=== PATIENT | female | born 1940 | race Caucasian/White ===

== ENCOUNTER → 2016-11-28 | Outpatient (CLI) | payer OTHER, BC ==
--- NOTE | 2016-11-28 15:52 | MR ---
MRI of the Brain (Without Contrast) History: Severe headaches, R 51. Technique: T1-weighted images were acquired axially and sagittally from the foramen magnum to the ve rtex. Axial fast inversion recovery, fast T2-weighted, GRE and diffusion-weighted axial images were obtained without contrast. Findings: There are several bilateral scattered isovolumic T2-weighted foci of hyperintensity within the white matter of the periventricular, deep and subcortical regions of the supratentorium, that are consistent with microvascular ischemic changes of the nature often seen in elderly patients, often h ypertensive patients. None are bright on the diffusion study or associated with hemorrhage on the gra dient study. The ventricles, cisterns, and sulci are normal for age, without hydrocephalus, midline s hift, herniation, or epidural/subdural hematomas. No intracranial hemorrhage or masses. Diffusion-martha ghted sequence demonstrates no acute infarct. Cerebellar tonsils are in normal position. 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 Normal signal flow-void in the superior sagittal sinus, basilar artery, and bilateral internal carotid arteries indicating patency. Paranasa l sinuses, both middle ears and mastoid air cells are free of fluid. 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 Impression: 1. Typical microvascular ischemic change. Is this patient hypertensive? 2. No intracranial cause for severe headaches identified.
== END ==
LOC: FIMAGING 14:24
PROVIDERS: ATTEND Internal Medicine
DX: R51 Headache (principal)

== ENCOUNTER → 2017-03-22 | Outpatient (CLI) | payer OTHER, BC | LOC: BMCIMAGING 09:25 | PROVIDERS: ATTEND Internal Medicine | DX: Z12.31 Encounter for screening mammogram for malignant neoplasm of breast (principal) | CPT/HCPCS: G0202 ==

== ENCOUNTER → 2017-04-05 | Outpatient (CLI) | payer OTHER, BC | LOC: BMCIMAGING 10:22 | PROVIDERS: ATTEND Physician Assistant Medical | DX: Z12.39 Encounter for other screening for malignant neoplasm of breast (principal); N63 Unspecified lump in breast | CPT/HCPCS: 76641; G0206 ==

== ENCOUNTER → 2018-01-07 | Outpatient (CLI) | payer OTHER, BC | LOC: BMCIMAGING 10:16 | PROVIDERS: ATTEND Internal Medicine | DX: Z13.820 Encounter for screening for osteoporosis (principal); Z78.0 Asymptomatic menopausal state ==

== ENCOUNTER → 2018-03-26 | Outpatient (CLI) | payer OTHER, BC | LOC: BMCIMAGING 08:11 | PROVIDERS: ATTEND Internal Medicine | DX: Z12.31 Encounter for screening mammogram for malignant neoplasm of breast (principal) ==

== ENCOUNTER → 2018-04-11 | Outpatient (CLI) | payer OTHER, BC | LOC: BMCIMAGING 10:40 | PROVIDERS: ATTEND Internal Medicine | DX: R92.8 Other abnormal and inconclusive findings on diagnostic imaging of breast (principal) ==

== ENCOUNTER → 2019-04-14 | Outpatient (CLI) | payer OTHER, BC | LOC: BMCIMAGING 09:03 ==

== ENCOUNTER → 2019-04-24 | Outpatient (CLI) | payer OTHER, BC | LOC: BMCIMAGING 10:49 ==